=== PATIENT | female | born 1960 | race African-American/Black ===

== ENCOUNTER → 2016-07-15 | Outpatient (CLI) | payer SELFPAY ==
[~2016-07-15] MED LIST: LORTAB 5/500 TA1 TA1 PO; NO MEDICATIONS
== END | disposition home or self-care (01) ==
LOC: CBAR 10:56
DX: Z01.818 Encounter for other preprocedural examination (principal); E66.01 Morbid (severe) obesity due to excess calories
CPT/HCPCS: G0463

== ENCOUNTER → 2016-07-30 | Outpatient (CLI) | payer BC ==
--- NOTE | ~2016-07-30 | EKG ---
PATIENT: DIANNE RUIZ UNIT #: [id number] Ventricular Rate: 75 BPM Atrial Rate: 75 BPM P-R Interval: 198 ms QRS Duration: 72 ms Q-T Interval: 356 ms QTC Calculation(Bezet): 397 ms P [place]: 40 degrees Calculated R [place]: 15 degrees Calculated T [place]: 84 degrees Diagnosis Line: Normal sinus rhythm Diagnosis Line: Nonspecific T wave abnormality Diagnosis Line: Abnormal ECG Diagnosis Line: No previous ECGs available Diagnosis Line: Confirmed by JEREMIAH ALFARO MD ([id number]) on 07/30/2016 Diagnosis Line: 7:23:19 PM INTERPRETING MD: DOMINIC ZHAO
== END | disposition home or self-care (01) ==
LOC: CEKG 09:01
DX: R94.31 Abnormal electrocardiogram [ECG] [EKG] (principal)
CPT/HCPCS: 93005